=== PATIENT | male | born 1995 | race American Indian/Alaskan Native ===

== ENCOUNTER 2017-07-12 08:48 | Emergency (ER) | payer OTHER ==
[2017-07-12] MEDS ORDERED: PERCOCET 5/325 PO ONE (10:20)
--- NOTE | 2017-07-12 10:35 | Emergency Department Report ---
HPI - General Chief Complaint: Dental/Oral Time Seen by Provider: 07/12/17 10:13 - HPI HPI: This is a 21-year-old -[place] male presents the emergency department from home with complaint of left lower molar tooth pain going on for the past 5 days. He has not taken anything for his symptoms on presentation. He denies any significant dental history and does not have a dentist for follow-up. He has no problems with swallowing, no drooling or trismus, no facial swelling or fever. No recent travel or sick contacts at home. He denies any other past medical history. He was seen in triage and found to have what appeared to be an irregular heartbeat and was sent to the main side for evaluation by a physician, as opposed to a mid-level provider. He denies tobacco or illicit drug use or abuse. ED Past Medical Hx - Past Medical History Previous Medical History?: No - Surgical History Past Surgical History?: No - Social History Smoking Status: Never Smoker Substance Use Type: None - Medications Home Medications: Home Medications Medication Instructions Recorded Confirmed Last Taken Type HYDROcodone/APAP 5-325 [Rupert 1 each PO Q6HR PRN #10 tablet 07/12/17 Unknown Rx 5/325] Methylphenidate HCl [Concerta] 54 mg PO QAM 07/12/17 07/12/17 Unknown History Sulfamethoxazole/Trimethoprim 1 each PO BID #14 tablet 07/12/17 Unknown Rx [Bactrim DS TAB] ED Review of Systems ROS: Stated complaint: TOOTHACHE Other details as noted in HPI Comment: All other systems reviewed and negative Constitutional: denies: chills, fever Eyes: denies: eye pain, eye discharge, vision change ENT: dental pain. denies: ear pain, throat pain Respiratory: denies: cough, shortness of breath, wheezing Cardiovascular: denies: chest pain, palpitations Gastrointestinal: denies: abdominal pain, nausea, diarrhea Genitourinary: denies: urgency, dysuria Musculoskeletal: denies: back pain, joint swelling, arthralgia Skin: denies: rash, lesions Neurological: denies: headache, weakness, paresthesias Physical Exam - Physical Exam Vital Signs: Vital Signs 07/12/17 07/12/17 08:49 09:19 Temperature 98.7 F 98.0 F Pulse Rate 134 H 52 L Respiratory 18 16 Rate Blood Pressure 148/104 Blood Pressure 129/63 [Left] O2 Sat by Pulse 100 99 Oximetry Physical Exam: GENERAL: The patient is well-developed well-nourished. HENT: Normocephalic. Atraumatic. Patient has moist mucous membranes. Oropharynx clear without tonsillar hypertrophy, erythema or exudates. No facial swelling. There is some tenderness to palpation along the left lower premolars but no visible or palpable abscess. No drooling or trismus. EYES: Extraocular motions are intact. Pupils equal reactive to light bilaterally. NECK: Supple. No meningitic signs are noted. There is no adenopathy noted. CHEST/LUNGS: Clear to auscultation. There is no respiratory distress noted. HEART/CARDIOVASCULAR: Regular. There is no tachycardia. There is no gallop rub or murmur. ABDOMEN: Abdomen is soft, nontender. Patient has normal bowel sounds. There is no abdominal distention. SKIN: Skin is warm and dry. NEURO: The patient is awake, alert, and oriented. The patient is cooperative. The patient has no focal neurologic deficits. The patient has normal speech and gait. MUSCULOSKELETAL: There is no tenderness or deformity. There is no limitation range of motion. There is no evidence of acute injury. ED Course Vital Signs 07/12/17 07/12/17 08:49 09:19 Temperature 98.7 F 98.0 F Pulse Rate 134 H 52 L Respiratory 18 16 Rate Blood Pressure 148/104 Blood Pressure 129/63 [Left] O2 Sat by Pulse 100 99 Oximetry ED Medical Decision Making - Lab Data Result diagrams: 07/12/17 10:35 07/12/17 10:35 - Medical Decision Making 21-year-old male presents with left lower jaw pain and toothache. He does not appear to be in any acute distress but he does present at first with some tachycardia and later with some bradycardia. EKG was done and then repeated that shows sinus arrhythmia but there is no ST elevation DC, signs of ischemia or any other acute process seen. He has no focal, motor or sensory deficits and his cranial nerves are intact. He was seen in the toilet the emergency department and appears stable while doing so. He was given a dose of pain medication and antibiotics here and will be given a prescription for the same and a referral for a dentist. He will return to the ER with any worsening of symptoms or any acute distress. While the patient was seen going down into the mid to low 40s with his heart rate, he was at a heart rate of 60 prior to discharge. It is most likely secondary to his sinus arrhythmia. He was given a referral for cardiology if he would like to follow up regarding this. He had no chest pain, shortness breath or palpitations. - Differential Diagnosis dental caries, toothache, dental abscess Critical Care Time: No Critical care attestation.: If time is entered above; I have spent that time in minutes in the direct care of this critically ill patient, excluding procedure time. ED Disposition Clinical Impression: Toothache, Sinus arrhythmia Disposition: TO HOME OR SELFCARE Is pt being admited?: No Condition: Stable Instructions: Toothache (ED) Additional Instructions: Follow-up with a dentist as soon as possible regarding your tooth pain. I started him on some antibiotics to take in case she were developing a tooth infection/abscess. Return to the emergency department with any facial swelling , intractable fever, drooling, or any acute distress. You have been prescribed a medication that is sedating and therefore should not be taken prior to driving , working, and responsible for children and in no way should be mixed with alcohol of any quantity. I have given you a referral for a local radiologist, Dr. Easley, in case she would like to follow up regarding your varying heart rate. Prescriptions: HYDROcodone/APAP 5-325 [Rupert 5/325] 1 each PO Q6HR PRN #10 tablet PRN Reason: Pain Sulfamethoxazole/Trimethoprim [Bactrim DS TAB] 1 each PO BID #14 tablet Referrals: PRIMARY CAREMD [Primary Care Provider] - 3-5 Days STEPHANIE EASLEY MD [Staff Physician] - 3-5 Days [facility] [Outside] - 3-5 Days Time of Disposition: 11:34
[2017-07-12 10:50] LABS: Eosinophils % (Auto) 2.1 % (0.0-4.3); Hematocrit 40.6 % (35.5-45.6); Hemoglobin 13.4 gm/dl (11.8-15.2); Mean Corpuscular HGB Conc 33 % (32-34); Mean Corpuscular Hemoglobin 28 pg (28-32); Mean Corpuscular Volume 86 fl (84-94); Platelet Count 230 K/mm3 (140-440); Red Blood Count 4.73 M/mm3 (3.65-5.03); Red Cell Distribution Width 13.5 % (13.2-15.2); White Blood Count 5.9 K/mm3 (4.5-11.0)
[2017-07-12 10:58] VITALS: BP 144/95
[2017-07-12] MEDS ORDERED: VEETIDS PO ONE (11:00)
[2017-07-12 11:06] LABS: Anion Gap 16 mmol/L; BUN/Creatinine Ratio 13.75; Blood Urea Nitrogen 11 mg/dL (9-20); Calcium 8.9 mg/dL (8.4-10.2); Carbon Dioxide 28 mmol/L (22-30); Chloride 102.9 mmol/L (98-107); Glucose 99 mg/dL (75-100); Potassium 4.6 mmol/L (3.6-5.0); Sodium 142 mmol/L (137-145)
== END 2017-07-12 11:46 | disposition home or self-care (01) ==
LOC: ED 08:48
DX: K08.89 Other specified disorders of teeth and supporting structures (principal); I49.8 Other specified cardiac arrhythmias
CPT/HCPCS: 36415; 80048; 84443; 84484; 85025; 93005; 93010